=== PATIENT | male | born 1975 | race Caucasian/White ===

== ENCOUNTER 2021-08-08 11:19 | Emergency (ER) | payer BC, MEDICAID ==
[~2021-08-08] VITALS: Ht 182.9 cm; Wt 109.1 kg
[2021-08-08 11:33] VITALS: BP 137/72
[2021-08-08] MEDS ORDERED: LIDOcaine/PRILOcaine 5gm cream TP ONE (11:35)
[2021-08-08] MEDS ORDERED: SULF1TAB49 PO (11:46)
== END 2021-08-08 12:34 | disposition home or self-care (01) ==
LOC: ER 11:20
DX: L03.012 Cellulitis of left finger (principal)
CPT/HCPCS: 11740; 99284